=== PATIENT | female | born 1990 | race Caucasian/White ===

== ENCOUNTER → 2025-09-10 09:57 | Outpatient (REF) | payer SELFPAY | LOC: RAD 09:57 | PROVIDERS: ATTENDING PHYSICIAN Obstetrics & Gynecology Reproductive Endocrinology | DX: O09.00 Supervision of pregnancy with history of infertility, unspecified trimester (principal) | CPT/HCPCS: 76801; 76817 ==

== ENCOUNTER → 2025-09-17 10:06 | Outpatient (REF) | payer SELFPAY | LOC: RAD 10:06 | PROVIDERS: ATTENDING PHYSICIAN Obstetrics & Gynecology Reproductive Endocrinology | DX: O09.00 Supervision of pregnancy with history of infertility, unspecified trimester (principal) | CPT/HCPCS: 76801; 76817 ==